=== PATIENT | female | born 1970 | race Caucasian/White ===

== ENCOUNTER 2017-04-02 09:32 | Day surgery (SDC) | payer MEDICAID, SELFPAY ==
[2017-04-02 09:40] VITALS: BP 140/92; BP 145/68; PULSE 61; PULSE 66; RESP 20
[2017-04-02 09:53] VITALS: BP 124/88; PULSE 62; RESP 18; TEMP 36.8; O2SAT 98
--- NOTE | 2017-04-02 10:19 | [facility].PMPROC ---
- Procedure Date: 04/02/17 Time: 10:20 Anesthesiologist:: Kwasi Wells MD Complications:: None Pre-procedure Diagnosis:: Degenerative disc disease of lumbar spine with bulging disc at L4-L5 with lumbar radiculopathy symptoms Post-procedure Diagnosis:: Same Indications for Procedure:: This patient is a pleasant 46-year-old white female who we are seeing for low back pain with lumbar radiculopathy symptoms. She had 80-90% relief from her previous lumbar epidural steroid injection. Her pain is starting to return. We will do a repeat lumbar epidural steroid injection today. She also had a fall approximately 3 weeks ago with a swollen right knee and ankle. We did order an MRI however it was denied. We did get an x-ray which shows some fluid in the area of the patellar bursa and early degenerative changes. I suggested conservative management and we can reevaluate if pain and swelling persist. Today we will do a lumbar epidural steroids and to see if this will help with her back pain and leg pain Procedure Details:: Informed consent was obtained and the risk and benefits of the procedure was explained to the patient. The patient was taken to the procedure room. She was placed prone on the procedure table. She was prepped and draped in sterile fashion. C-arm fluoroscopy was used to view the lumbar spine. Skin and subcutaneous tissues were anesthetized using lidocaine. I placed an 18-gauge epidural needle and advanced into the L4-L5 interspace using fluoroscopic guidance and [id number] to air. After confirmation of needle placement in the epidural space with dye I injected 2 mL of lidocaine 1.5% with Depo-Medrol 80 mg. Patient tolerated the procedure well with no complications. Plan and Disposition:: We will follow-up with her in 2 weeks. We will reevaluate her symptoms at that time.
--- NOTE | 2017-04-02 10:23 | P.PCN_ITS ---
- Procedure Date: 04/02/17 Time: 10:20 Anesthesiologist:: Kwasi Wells MD Complications:: None Pre-procedure Diagnosis:: Degenerative disc disease of lumbar spine with bulging disc at L4-L5 with lumbar radiculopathy symptoms Post-procedure Diagnosis:: Same Indications for Procedure:: This patient is a pleasant 46-year-old white female who we are seeing for low back pain with lumbar radiculopathy symptoms. She had 80-90% relief from her previous lumbar epidural steroid injection. Her pain is starting to return. We will do a repeat lumbar epidural steroid injection today. She also had a fall approximately 3 weeks ago with a swollen right knee and ankle. We did order an MRI however it was denied. We did get an x-ray which shows some fluid in the area of the patellar bursa and early degenerative changes. I suggested conservative management and we can reevaluate if pain and swelling persist. Today we will do a lumbar epidural steroids and to see if this will help with her back pain and leg pain Procedure Details:: Informed consent was obtained and the risk and benefits of the procedure was explained to the patient. The patient was taken to the procedure room. She was placed prone on the procedure table. She was prepped and draped in sterile fashion. C-arm fluoroscopy was used to view the lumbar spine. Skin and subcutaneous tissues were anesthetized using lidocaine. I placed an 18-gauge epidural needle and advanced into the L4-L5 interspace using fluoroscopic guidance and [id number] to air. After confirmation of needle placement in the epidural space with dye I injected 2 mL of lidocaine 1.5% with Depo- Medrol 80 mg. Patient tolerated the procedure well with no complications. Plan and Disposition:: We will follow-up with her in 2 weeks. We will reevaluate her symptoms at that time.
[2017-04-02 11:55] VITALS: BP 139/86; PULSE 62; RESP 16; TEMP 37; O2SAT 100
== END 2017-04-02 11:30 | disposition home or self-care (01) ==
LOC: SC.PAINP 09:35
PROVIDERS: Family Provider Family Medicine; PCP Family Medicine; Visit Provider Anesthesiology
DX: M51.16 Intervertebral disc disorders with radiculopathy, lumbar region (principal)
CPT/HCPCS: 62323; J1040; Q9966